=== PATIENT | female | born 1980 | race Caucasian/White ===

== ENCOUNTER 2017-09-07 23:51 | Emergency (ER) | payer OTHER ==
--- NOTE | 2017-09-08 00:22 | EDM.PDOC ---
ED HPI GENERAL MEDICAL PROBLEM - General Chief Complaint: ENT Problem Stated Complaint: DX STREP GETTING WORSE Time Seen by Provider: 09/08/17 00:07 Source of Information: Reports: Patient History Limitations: Reports: No Limitations - History of Present Illness INITIAL COMMENTS - FREE TEXT/NARRATIVE: The patient states that she was diagnosed with strep throat at the walk-in clinic yesterday, 09/06/2017. She was prescribed amoxicillin 500 mg po BID. She now presents to the ED, stating that her pain has not improved, she feels feverish, and that she has a hoarse voice. She states she has been taking Tylenol, ibuprofen, and [place], without relief of her symptoms. The patient's PCP is Chelly Gerard. Throat Pain Score (Numeric/FACES): 10 - Related Data Allergies Allergy/AdvReac Type Severity Reaction Status Date / Time No Known Allergies Allergy Verified 09/07/17 23:58 Home Meds: Home Meds Amoxicillin 500 mg PO BID 09/07/17 [History] Ferrous Gluconate [Iron] 65 mg PO DAILY 09/07/17 [History] Norethindrone-Ethinyl Estrad [Nortrel 1-35 28 Tablet] 1 tab PO DAILY 09/07/17 [ History] Phentermine HCl 30 mg PO DAILY 09/07/17 [History] Zolpidem Tartrate [Ambien] 10 mg PO BEDTIME 09/07/17 [History] Chromium Amino Acid Chelate [Chromium] 400 mcg PO DAILY 09/08/17 [History] Norethindrone AC-Eth Estradiol [Fyavolv 1 mg-5 Mcg Tablet] 1 each PO DAILY 09/08 [History] Spironolactone [Aldactone] 50 mg PO DAILY 09/08/17 [History] Tretinoin [Retin-A] 20 gm TP DAILY 09/08/17 [History] metFORMIN HCl [Glucophage Xr] 1,000 mg PO DAILY 09/08/17 [History] Past Medical History 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: Polycystic Ovaries 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) - Past Surgical History HEENT Surgical History: Reports: Oral Surgery ([place] teeth extraction) GI Surgical History: Reports: Appendectomy, Cholecystectomy Musculoskeletal Surgical History: Reports: Other (See Below) (Left 4th and 5th finger repair) Social & Family History - Tobacco Use Smoking Status *Q: Former Smoker - Alcohol Use Alcohol Use History: Yes Alcohol Use Frequency: Socially - Recreational Drug Use Recreational Drug Use: No - Living Situation & Occupation Living situation: Reports: , with Spouse 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 ED EXAM, ENT - Physical Exam Exam: See Below Exam Limited By: No Limitations General Appearance: Alert, WD/WN, No Apparent Distress Eye Exam: Bilateral Eye: Normal Inspection Ears: Normal External Exam, Normal Canal, Hearing Grossly Normal, Normal TMs Nose: Normal Inspection, Normal Mucousa, No Blood Mouth/Throat: Normal Inspection, Normal Gums, Normal Lips, Normal Oropharynx ( No swelling or erythema. Uvula midline.), Normal Teeth. No: Peritonsillar Mass , Pharyngeal Erythema, Tonsillar Erythema, Tonsillar Exudates, Tonsillar Swelling, Uvular Deviation, Uvular Edema Head: Atraumatic, Normocephalic Neck: Normal Inspection, Supple, Non-Tender, Full Range of Motion. No: Lymphadenopathy (L), Lymphadenopathy (R) Course - Vital Signs Last Recorded V/S: Last Vital Signs Temp 37.2 C 09/08/17 00:25 Pulse 93 09/08/17 00:25 Resp 19 09/08/17 00:25 BP 113/71 09/08/17 00:25 Pulse Ox 100 09/08/17 00:25 - Orders/Labs/Meds Meds: Medications Discontinued Medications Generic Name Dose Route Start Last Admin Trade Name Freq PRN Reason Stop Dose Admin Penicillin G Benzathine 1.2 millunits 09/08/17 00:16 09/08/17 00:25 Bicillin L-A IM 09/08/17 00:17 1.2 millunits ONETIME ONE Administration - Re-Assessments/Exams Free Text/Narrative Re-Assessment/Exam: 09/08/17 00:17 The patient has paperwork from the walk-in clinic dated 09/06/2017 stating that she tested positive for strep throat. Current guidelines recommend a single injection of penicillin G benzathine, 1.2 million units, to prevent sequelae from strep throat. The patient was prescribed amoxicillin 500 BID x 10 days - perhaps the walk-in clinic does not have penicillin G benzathine. On her examination today, there are no visible abnormalities to her throat whatsoever - no erythema, swollen tonsils, or swollen soft palate. There is no suggestion of peritonsillar cellulitis or abscess. She has no submandibular lymphadenopathy , and she is afebrile. I recommended that we give the patient a single injection of the penicillin G benzathine, and that she then stop taking the amoxicillin that she was prescribed yesterday. For her sore throat, I am recommending she try Chloraseptic spray and warm salt water gargles. The patient has agreed. Departure - Departure Time of Disposition: 00:20 Disposition: Home, Self-Care 01 Condition: Good Clinical Impression: Streptococcal pharyngitis - Discharge Information *PRESCRIPTION DRUG MONITORING PROGRAM REVIEWED*: Not Applicable *COPY OF PRESCRIPTION DRUG MONITORING REPORT IN PATIENT CLAY: Not Applicable Instructions: Pharyngitis Referrals: Rebecca Gerard [employer] [Primary Care Provider] - Forms: ED Department Discharge Additional Instructions: You were seen in the emergency room for continued throat pain, after being diagnosed with strep throat yesterday, 09/06/2017. On examination, no visible abnormalities were found in your throat to suggest something other than strep throat, such as a peritonsillar cellulitis or abscess. In accordance with guidelines, you were given an injection of penicillin G benzathine - a long-acting penicillin, that is recommended for the treatment of strep throat. Going forward, we recommend that you throw the remaining Augmentin into the trash - do not reported down the drain or flush it down the toilet. In addition to the medicines that you're currently taking for your sore throat, consider also Chloraseptic spray and warm salt water gargles. If any other problems, please do not hesitate to return to the ER.
[2017-09-08] MEDS: Penicillin G Benzathine 1,200,000 Units/2 ML Syringe IM ONE (00:25)
== END 2017-09-08 00:33 | disposition home or self-care (01) ==
LOC: JD.ED 23:51
DX: J02.0 Streptococcal pharyngitis (principal); Z87.891 Personal history of nicotine dependence; Z79.899 Other long term (current) drug therapy
CPT/HCPCS: 96372; 99282-25; J0561

== ENCOUNTER 2020-11-02 14:36 | Emergency (ER) | payer OTHER | END 2020-11-02 16:05 | disposition left against medical advice (07) | LOC: JD.ED 14:36 | DX: K62.89 Other specified diseases of anus and rectum (principal); Z53.21 Procedure and treatment not carried out due to patient leaving prior to being seen by health care provider ==

== ENCOUNTER 2022-04-23 18:09 | Emergency (ER) | payer BC, OTHER ==
[2022-04-23] MEDS ORDERED: Sodium Chloride 0.9% 10 ML Syringe FLUSH PRN (18:19)
[2022-04-23] MEDS ORDERED: LORazepam 2 MG/ML SDV IVPUSH ONE (18:32)
[2022-04-23] MEDS ORDERED: Sodium Chloride 0.9% 1,000 ML IV STA ×3 (18:32→20:21)
[2022-04-23] MEDS ORDERED: Ondansetron 4 MG/2 ML SDV IVPUSH ONE ×2 (18:32→21:17)
[2022-04-23] MEDS ORDERED: Magnesium Sulfate/Water 4 GM in Premix Bag 1 BAG IV ONE (19:16)
== END 2022-04-23 23:52 | disposition home or self-care (01) ==
LOC: JD.ED 18:09
DX: E83.42 Hypomagnesemia (principal); F45.8 Other somatoform disorders; R11.10 Vomiting, unspecified
CPT/HCPCS: 36415; 80053; 81001; 81025; 83735; 85025; 86140; 96361; 96365; 96366; 96375; 96376; 99284; J2060; J2405; J3475; J3490; J7030